=== PATIENT | male | born 1960 | race Caucasian/White ===

== ENCOUNTER 2019-01-09 11:04 | Emergency (ER) | payer SELFPAY ==
[~2019-01-09] VITALS: Ht 177.8 cm; Wt 98.7 kg
[2019-01-09 11:06] VITALS: Ht 177.8 cm; Wt 98.7 kg
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
[2019-01-09] MEDS ORDERED: ACET500C5 PO (12:15)
[2019-01-09 12:49] VITALS: BP 132/71; PULSE 68; RESP 17
== END 2019-01-09 12:44 | disposition home or self-care (01) ==
LOC: FTE 11:04
DX: S16.1XXA Strain of muscle, fascia and tendon at neck level, initial encounter (principal); S20.212A Contusion of left front wall of thorax, initial encounter; V49.40XA Driver injured in collision with unspecified motor vehicles in traffic accident, initial encounter
CPT/HCPCS: 70140; 71100; 72040